=== PATIENT | female | born 1975 | race Caucasian/White ===

== ENCOUNTER → 2018-06-19 | Outpatient (CLI) | payer BC, MEDICAID ==
[2018-06-19] VITALS (11 sets, daily range): BP systolic 90–121; BP diastolic 38–71
[~2018-06-19] VITALS: Ht 172.7 cm; Wt 68.0 kg
[~2018-06-19] MED LIST: OXYC-12 PO; PREN1TAB71 PO
[2018-06-19] MEDS: LIDOCAINE 1% INJ 20 ML 20 ML VIAL ONE (11:40)
[2018-06-19] MEDS: LIDOCAINE 1% INJ 20 ML 20 ML VIAL INJ ONE (11:40)
--- NOTE | 2018-06-19 16:07 | Diagnostic Imaging Report ---
INDICATION: Left breast calcifications. Patient presents for stereotactic biopsy. PROCEDURE: Patient was brought to the stereotactic suite and placed in a sitting upright position. The left breast was positioned mediolateral. Mammography was performed. The cluster of microcalcifications in the posterior left breast and slightly upper and outer aspect were targeted. The left breast was then prepped and draped in the usual sterile fashion. Small amount of 1% lidocaine was utilized for local anesthesia. An 8-gauge needle was advanced and placed into the left breast via target coordinates. A total of four core biopsies were obtained utilizing an 8-gauge needle and a vacuum-assisted device. Specimen radiograph demonstrates multiple calcifications within samples 4 and 5. A marker clip was then deployed. Followup imaging demonstrates good deployment of the clip into the biopsy cavity. During the procedure, patient did experience a vasovagal episode with syncope and bradycardia. Patient did recover normally. Once the probe was removed from the breast at the completion of the procedure, a moderate-sized blood clot came out. The marker clip came out with the blood clot. The patient did experience moderate bleeding postbiopsy. Prolonged manual compression as well as mammographic compression was performed with 4 x [address] to obtain hemostasis. IMPRESSION: Stereotactic biopsy of left breast calcifications utilizing vacuum-assisted device. Pathology results are currently pending. Dictated by: Dictated on workstation # [id number]
== END ==
LOC: RAD 11:00
PROVIDERS: ATTEND Nurse Practitioner Women's Health
DX: N60.82 Other benign mammary dysplasias of left breast (principal); R92.0 Mammographic microcalcification found on diagnostic imaging of breast
CPT/HCPCS: 19081; 88305